=== PATIENT | male | born 1975 | race Caucasian/White ===

== ENCOUNTER 2017-11-07 08:39 | Day surgery (SDC) | payer BC ==
[2017-11-04 14:56] LABS: Basophils # (auto) 0 uL; Basophils % (auto) 0.4 % (0.0-2.0); Eosinophils # (auto) 0.4 uL; Eosinophils % (auto) 4.8 % (0.0-7.0); Lymphocytes # (auto) 2.9 uL; Lymphocytes % (auto) 39.1 % (10.0-50.0); Mean Corpuscular Hemoglobin 31.1 pg (28.0-32.0); Mean Corpuscular Volume 91.4 fL (80.0-100.0); Monocytes # (auto) 0.9 uL; Monocytes % (auto) 11.5 % (0.0-12.0); Neutrophils # (auto) 3.3 uL; Neutrophils % (auto) 44.2 % (37.0-80.0); Nucleated Red Blood Cells % 0.1 %; Platelet Count (auto) 274 10^3/uL (140-450); Red Blood Cells 5.14 10^6/uL (4.5-5.90); Red Cell Distribution Width 13.5 % (11.8-14.3); White Blood Cell 7.4 10^3/uL (4.4-10.8)
[2017-11-04 15:02] LABS: INR 0.93 (0.9-1.15); Partial Thromboplastin Time 26.8 sec (23.78-33.04)
[2017-11-04 15:05] LABS: Urine Bacteria NONE SEEN /hpf (None Seen); Urine Blood Negative /uL (Negative); Urine WBC 14 /hpf (0 - 3)
[2017-11-04 15:23] LABS: Albumin 4.1 g/dL (3.4-5.0); Bilirubin, Total 0.4 mg/dL (0.2-1.0); Calcium 8.6 mg/dL (8.5-10.1); Total Protein 7.9 g/dL (6.4-8.2)
[~2017-11-07] VITALS: Ht 177.8 cm; Wt 74.8 kg
[2017-11-07] MEDS ORDERED: ceFAZolin 1GM/50ML 50 ML IV ONE (09:11)
[2017-11-07] MEDS ORDERED: LABETALOL HCL 5 MG/ML 4ML SYRINGE IV PRN (09:30)
[2017-11-07] MEDS ORDERED: MORPHINE SULFATE 4 MG/ML SYR/VIAL IV PRN (09:30)
[2017-11-07] MEDS ORDERED: KETOROLAC TROMETH 30 MG/ML 1ML VIAL IV ONE (09:30)
[2017-11-07] MEDS ORDERED: HYDROmorphone HCL 2 MG/ML VL IV PRN (09:30)
[2017-11-07] MEDS ORDERED: ONDANSETRON HCL 4 MG/2 ML VIAL IV ONE (09:30)
[2017-11-07] MEDS ORDERED: MIDAZOLAM HCL 1MG/1ML-2 ML VIAL IV PRN (09:30)
[2017-11-07] MEDS ORDERED: ePHEDrine SULFATE 50 MG/ML AMP IV PRN (09:30)
[2017-11-07] MEDS ORDERED: fentaNYL CITRATE 100 MCG/2 ML VL ONE (09:32)
[2017-11-07] MEDS ORDERED: BUPIVACAINE W/ EPINEPH 0.25% INJ 50ML MDV ONE (09:32)
[2017-11-07] MEDS ORDERED: BACITRACIN TOP OINT 1 UD PKG TOP ONE (09:32)
[2017-11-07] MEDS ORDERED: MIDAZOLAM HCL 1MG/1ML-2 ML VIAL ONE (09:32)
[2017-11-07] MEDS ORDERED: LIDOCAINE W/ EPINEPHRINE 1% 20ML VIAL ONE (09:32)
[2017-11-07] MEDS ORDERED: NEOMYCIN-BACITRACIN-POLYM 15GM TOP OINT TOP ONE (09:39)
[2017-11-07] MEDS ORDERED: MORPHINE SULFATE 4 MG/ML SYR/VIAL IV ONE (10:00)
[2017-11-07] MEDS ORDERED: PROPOFOL 10 MG/ML 20 ML IV ONE (10:05)
[2017-11-07] MEDS ORDERED: DEXAMETHASONE SOD PHOS 10MG/1ML VIAL INJ ONE (10:05)
[2017-11-07] MEDS ORDERED: KETOROLAC TROMETH 30 MG/ML 1ML VIAL ONE (10:18)
[2017-11-07 11:04] VITALS: BP 114/77
== END 2017-11-07 10:08 | disposition home or self-care (01) ==
LOC: SUR 08:39
PROVIDERS: ATTEND Urology
DX: Z30.2 Encounter for sterilization (principal); Z98.890 Other specified postprocedural states
CPT/HCPCS: 36415; 55250; 80053; 81001; 85025; 85610; 85730; 87086; J0690; J1100; J1885; J2250; J2704; J3010; 88302